=== PATIENT | female | born 1995 | race African-American/Black ===

== ENCOUNTER 2020-05-01 08:46 | Emergency (ER) | payer OTHER ==
[2020-05-01 08:58] VITALS: BP 131/75
--- NOTE | 2020-05-01 09:22 | ED Physician Documentation ---
PD HPI UPPER EXT INJURY - Stated complaint Stated Complaint: LT WRIST PX - Chief complaint Chief Complaint: Ext Problem - History obtained from History obtained from: Patient - History of Present Illness Location: Left, Wrist Type of injury: Blunt / blow Where injury occurred: Work Timing - onset: How many hours ago (1) Timing - duration: Hours (1) Timing - details: Abrupt onset Pain level max: 5 Pain level now: 4 Improved by: Rest, Ice, Immobilization Worsened by: Moving, Palpating Associated symptoms: Swelling. No: Weakness, Numbness, Tingling, Discolored Contributing factors: No: Anticoagulated Recently seen: Not recently seen - Additonal information Additional information: Patient is right-handed. She is active duty [place]. She states that today she was working on a job, was removing a chain when it hit her in the wrist. Worse with movement, better with rest. Review of Systems Constitutional: denies: Fever, Chills Skin: denies: Rash Musculoskeletal: denies: Neck pain, Back pain Neurologic: denies: Headache PD PAST MEDICAL HISTORY - Present Medications Home Medications: Ambulatory Orders Medication Instructions Recorded Confirmed No Known Home Medications 05/01/20 05/01/20 - Allergies Allergies/Adverse Reactions: Allergies Allergy/AdvReac Type Severity Reaction Status Date / Time No Known Drug Allergies Allergy Verified 05/01/20 08:58 PD ED PE NORMAL - Vitals Vital signs reviewed: Yes - General General: Alert and oriented X 3, No acute distress - Derm Derm: Warm and dry - Extremities Extremities: Other (Tender to palpation over the volar aspect of the left wrist, mild swelling. No bony tenderness about the wrist. Pain with movement. Neurovascular intact. No evidence of tendon rupture. Test against resistance. No snuffbox tenderness.) Results - Vitals Vitals: Vital Signs - 24 hr 05/01/20 08:51 Temperature 36.6 C Heart Rate 72 Respiratory 14 Rate Blood Pressure 131/75 H O2 Saturation 99 Oxygen O2 Source Room air - Rads (name of study) Left wrist x-ray Radiology: Prelim report reviewed, EMP read contemporaneously, See rad report PD MEDICAL DECISION MAKING - ED course Complexity details: reviewed results, re-evaluated patient, considered differential, d/w patient ED course: 24-year-old female presents to the emergency department with a left wrist contusion. No acute findings on x-ray. We will place in a splint for comfort. Neurovascular intact. No snuffbox tenderness. Patient counseled regarding signs and symptoms for which I believe and urgent re-evaluation would be necessary. Patient with good understanding of and agreement to plan and is comfortable going home at this time This document was made in part using voice recognition software. While efforts are made to proofread this document, sound alike and grammatical errors may occur. Departure - Departure Disposition: Home, Self Care Clinical Impression: Contusion of wrist, left Qualifiers: Encounter type: initial encounter Qualified Code(s): S60.212A - Contusion of left wrist, initial encounter Condition: Good Instructions: ED Contusion Soft Tissue Follow-Up: ALVARADO Patel [Provider Group] - Within 1 week Comments: There is no fracture on your x-ray today. You can wear the brace as needed for comfort. You can use Motrin or Tylenol as needed for pain. Follow-up with your doctor in 1 week for repeat evaluation Discharge Date/Time: 05/01/20 10:10
--- NOTE | 2020-05-01 09:31 | XRAY Report ---
PROCEDURE: Wrist 4 View LT INDICATIONS: chain vs wrist TECHNIQUE: 4 views of the wrist were acquired. COMPARISON: None FINDINGS: Bones: No fractures or dislocations. No suspicious bony lesions. Scaphoid view: Scaphoid is intact. Soft tissues: No suspicious soft tissue calcifications. Mild wrist soft tissue swelling is seen. IMPRESSION: No acute left wrist fracture or dislocation. Mild wrist soft tissue swelling. No radiopaque foreign b matilda.. Reviewed by: Kem Shaikh MD on 05/01/2020 8:[address] [facility] Approved by: Kem Shaikh MD on 05/01/2020 8:[address] [facility] Station ID: [id number]
== END 2020-05-01 10:10 | disposition home or self-care (01) ==
LOC: ED 08:46
DX: S60.212A Contusion of left wrist, initial encounter (principal); W20.8XXA Other cause of strike by thrown, projected or falling object, initial encounter; Y93.89 Activity, other specified; Y92.138 Other place on military base as the place of occurrence of the external cause; Y99.1 Military activity
CPT/HCPCS: 99283